=== PATIENT | female | born 1970 | race African-American/Black ===

== ENCOUNTER 2018-02-16 09:40 | Emergency (ER) | payer OTHER ==
[~2018-02-16] VITALS: Ht 160 cm; Wt 104.3 kg
[~2018-02-16 09:40] MED LIST: HALOPERIDOL 2 MG2 M1 PO; HYDROCHLOROTHIA25 M1 PO; LITHIUM CARBON300 M3 PO; TYLENOL EX-STR500 M2 PO
[2018-02-16] MEDS ORDERED: IBUPROFEN 200200 M1 PO (09:54)
[2018-02-16 10:22] LABS: HEMATOCRIT 36.1 % (37.0-47.0); HEMOGLOBIN 11.8 gm/dL (12.0-15.0); MCH 28.4 pg (26.0-34.0); MCHC 32.6 g/dL (28.0-37.0); MCV 87.2 fL (80.0-100.0); RBC 4.14 mil/uL (4.20-5.00); RDW 14.2 % (10.5-14.5)
[2018-02-16 10:28] LABS: CALCIUM 8.1 mg/dL (8.5-10.1); CREATININE 0.8 mg/dL (0.6-1.0); POTASSIUM 3.7 mmol/L (3.5-5.1)
== END 2018-02-16 12:48 | disposition home or self-care (01) ==
LOC: ER 09:40
PROVIDERS: Emergency Medicine
DX: N93.8 Other specified abnormal uterine and vaginal bleeding (principal); F17.210 Nicotine dependence, cigarettes, uncomplicated; Z88.5 Allergy status to narcotic agent

== ENCOUNTER 2018-10-30 00:55 | Emergency (ER) | payer OTHER ==
[~2018-10-30] VITALS: Ht 160 cm; Wt 113.4 kg
[~2018-10-30 00:55] MED LIST changes: +IBUPROFEN 200200 M1 PO
[2018-10-30 02:02] VITALS: BP 151/96
== END 2018-10-30 02:05 ==
LOC: ER 00:55
DX: R06.02 Shortness of breath (principal); I10 Essential (primary) hypertension; F17.210 Nicotine dependence, cigarettes, uncomplicated; Z88.5 Allergy status to narcotic agent; Z79.899 Other long term (current) drug therapy